=== PATIENT | male | born 1995 | race African-American/Black ===

== ENCOUNTER 2017-08-17 11:11 | Emergency (ER) | payer SELFPAY ==
--- NOTE | 2017-08-17 11:26 | ED Physician Documentation ---
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 Pt says that his wrist appeared dislocated and was realligned by the football workplace trainer and assessor. Pt has had some R wrist/hand swelling. Pt has been using ice, which reduced the swelling.) - ROS CONST: no problems EYES/ENT: none CVS/RESP: none GI/: none MS/SKIN/LYMPH: other (R wrist injury) - PAST HX Past History: none Allergies/Adverse Reactions: Allergies Allergy/AdvReac Type Severity Reaction Status Date / Time No Known Allergies Allergy Verified 08/17/17 11:30 Home Medications: Ambulatory Orders Medication Instructions Recorded NK [NK] 03/17/13 - SOCIAL HX Smoking History: chew - FAMILY HX Family History: No - VITAL SIGNS Vital Signs: Vital Signs Temp Pulse Resp BP Pulse Ox 148/70 09/28/14 14:50 - REVIEWED ASSESSMENTS Nursing Assessment Reviewed: Yes Vitals Reviewed: Yes Progress - Progress Progress: X-ray R wrist: Ossific densities adjacent to the ulna styloid - possible avulsion. Correlate with any previous imaging. Toradol 60 mg IM wrist splint NSAIDS, ice f/u ortho if sx persist. General Adult Physical Exam - PHYSICAL EXAM GENERAL APPEARANCE: mild distress NECK: normal inspection, supple RESPIRATORY: no resp distress, chest non-tender CVS: reg rate & rhythm, heart sounds normal SKIN: warm/dry, normal color EXTREMITIES: tenderness (R wrist, with swelling of wrist and hand; FROM; tender. ) NEURO: oriented X3, motor nml, sensation nml Discharge Clincal Impression: ? avulsion fx R wrist Right wrist sprain Qualifiers: Encounter type: initial encounter Qualified Code(s): S63.501A - Unspecified sprain of right wrist, initial encounter Referrals: Primary Doctor,No [Primary Care Provider] - Condition: Good Disposition: 01 HOME, SELF-CARE Decision to Admit: NO Decision Time: 13:32
[2017-08-17 11:31] VITALS: BP 145/75
[2017-08-17] MEDS ORDERED: KETOROLAC TROMETHAMINE 60 MG/2 ML VIAL IM ONE (12:26)
--- NOTE | 2017-08-17 18:41 | Diagnostic Imaging Report ---
VILLA PAIZ [facility] [id number] [facility] [address] [id number] Report Submission Date: Aug 17, 2017 12:09:40 PM CDT Patient Study Name: AMARILYS BAZAN Date: Aug 17, 2017 11:38:50 AM CDT Modality Type: DX Gender: M Description: UPPER EXTREMITY : 94 Institution: [facility] Physician: VILLA PAIZ Examination: Plain film right wrist History: RT WRIST, PAIN IN RT WRIST WITH DISLOCATION AND REDUCTION 5 DAYS AGO, NO PRIOR INJURIES (Hx) Comparison exams: None available Findings: 3 views the right wrist demonstrates ossific densities projecting adjacent to the ulna styloid. No other cortical abnormality. No soft tissue abnormality. Impression: Ossific densities adjacent to the ulna styloid - possible avulsion. Correlate with any previous imaging. Electronically signed on Aug 17, 2017 12:09:40 PM CDT by: Dwayne KWOK
== END 2017-08-17 12:37 | disposition home or self-care (01) ==
LOC: ED 11:11
DX: S63.501A Unspecified sprain of right wrist, initial encounter (principal); Y93.61 Activity, american tackle football
CPT/HCPCS: 73110; J1885; L3908; 96372; 99283